=== PATIENT | female | born 1955 | race Two or more races ===

== ENCOUNTER 2020-06-15 07:51 | Day surgery (SDC) | payer OTHER ==
[~2020-06-15 07:51] MED LIST: COZAAR25 MG PO; SYMBICORT 16010.2 GM IH; VOLTARIN PO
[2020-06-15] MEDS ORDERED: CIPRO500 MG PO (13:39)
[2020-06-15] MEDS ORDERED: PERCOCET 5-3251 EACH PO (13:39)
[2020-06-15] MEDS ORDERED: ASA325 MG PO (13:39)
== END 2020-06-15 17:40 | disposition home or self-care (01) ==
LOC: CIR.AMB 07:51
PROVIDERS: ATTEND Orthopaedic Surgery
DX: S82.852A Displaced trimalleolar fracture of left lower leg, initial encounter for closed fracture (principal); Z20.822 Contact with and (suspected) exposure to COVID-19
CPT/HCPCS: 27814; 20902; 27695; C1776